=== PATIENT | female | born 1975 | race Caucasian/White ===

== ENCOUNTER 2016-07-09 12:39 | Inpatient (IN) | payer OTHER ==
[2016-07-09] MEDS ORDERED: MENTHOL/PHENOL 1 EACH UD MM PRN (14:57)
[2016-07-09] MEDS ORDERED: LOPERAMIDE HCL 2 MG CAPSULE PO PRN (14:57)
[2016-07-09] MEDS ORDERED: MAGNESIUM CITRATE 300 ML BOTTLE PO PRN (14:57)
[2016-07-09] MEDS ORDERED: P-EPHED 60MG/TRIPROLIDI 2.5MG TABLET PO PRN (14:57)
[2016-07-09] MEDS ORDERED: MAGNESIUM HYDROX 2400MG/30ML ORAL SUSPENSION 30 ML CUP PO PRN (14:57)
[2016-07-09] MEDS ORDERED: MAG HYDROX/AL HYDROX/SIMETH 30 ML UNIT-DOSE CUP PO PRN (14:57)
[2016-07-09] MEDS ORDERED: IBUPROFEN 400 MG TABLET (FP) PO PRN (14:57)
[2016-07-09] MEDS ORDERED: guaiFENesin/D-METHORPHAN HB 10 ML UNIT-DOSE CUPS PO PRN (14:57)
--- NOTE | 2016-07-09 14:57 | HP ---
MIRELA STANTON Rehab Assess/Revision - Admission History Admitted to Rehab from: [facility] [place] Date of Admission to Rehab: 07/09/16 - Vital signs Vital Signs: Vital Signs Period Temp Pulse Resp BP Sys/Daigle Pulse Ox Last 24 Hr 97.1 F 91 16 96/62 - Findings Detox History & Physical reviewed: Yes Concur with findings: Yes
[2016-07-09 15:10] VITALS: BMI 25.3
[2016-07-09] MEDS: FERROUS SO4 325 MG TABLET (FP) PO SCH (17:25)
[2016-07-09] MEDS: hydrOXYzine PAMOATE 50 MG CAPSULE (FP) PO PRN (17:26)
[2016-07-09] MEDS: CYCLOBENZAPRINE HCL 10 MG TABLET (FP) PO PRN (18:05)
[2016-07-09] MEDS: QUEtiapine FUMARATE 50 MG TABLET PO SCH (21:28)
[2016-07-09] MEDS: THIAMINE HCL 100 MG TABLET (FP) PO SCH (21:28)
[2016-07-09] MEDS: traZODone HCL 50 MG TABLET (FP) PO SCH (21:29)
[2016-07-09] MEDS ORDERED: traZODone HCL 150 MG TABLET PO SCH (22:00)
[2016-07-10] MEDS: QUEtiapine FUMARATE 50 MG TABLET PO SCH ×3 (06:43→21:25)
[2016-07-10] MEDS: CYCLOBENZAPRINE HCL 10 MG TABLET (FP) PO PRN (06:44)
[2016-07-10] MEDS: FERROUS SO4 325 MG TABLET (FP) PO SCH ×3 (07:24→17:56)
[2016-07-10] MEDS: LIDOCAINE 5% TOPICAL PATCH TP SCH (10:16)
[2016-07-10] MEDS: NICOTINE 14 MG/24 HOURS TOPICAL PATCH TD SCH (10:16)
[2016-07-10] MEDS: PRENATAL VITAMINS W/ FOLIC ACID TABLET (FP) PO SCH (10:17)
[2016-07-10] MEDS: hydrOXYzine PAMOATE 50 MG CAPSULE (FP) PO PRN ×3 (10:18→20:19)
[2016-07-10] MEDS: CYCLOBENZAPRINE HCL 10 MG TABLET (FP) PO SCH ×2 (13:21→21:25)
[2016-07-10] MEDS: THIAMINE HCL 100 MG TABLET (FP) PO SCH (21:25)
[2016-07-10] MEDS: traZODone HCL 50 MG TABLET (FP) PO SCH (21:25)
[2016-07-11] MEDS: CYCLOBENZAPRINE HCL 10 MG TABLET (FP) PO SCH ×3 (06:27→21:34)
[2016-07-11] MEDS: QUEtiapine FUMARATE 50 MG TABLET PO SCH ×3 (06:27→21:34)
[2016-07-11] MEDS: FERROUS SO4 325 MG TABLET (FP) PO SCH ×3 (07:04→17:56)
[2016-07-11] MEDS: NICOTINE 14 MG/24 HOURS TOPICAL PATCH TD SCH (10:25)
[2016-07-11] MEDS: PRENATAL VITAMINS W/ FOLIC ACID TABLET (FP) PO SCH (10:25)
[2016-07-11] MEDS: LIDOCAINE 5% TOPICAL PATCH TP SCH (10:25)
[2016-07-11] MEDS: hydrOXYzine PAMOATE 50 MG CAPSULE (FP) PO PRN ×2 (10:27→17:56)
[2016-07-11] MEDS: THIAMINE HCL 100 MG TABLET (FP) PO SCH (21:33)
[2016-07-11] MEDS: ACETAMINOPHEN 325 MG TABLET (FP) PO PRN (21:34)
[2016-07-11] MEDS: traZODone HCL 50 MG TABLET (FP) PO SCH (21:34)
[2016-07-12] MEDS: hydrOXYzine PAMOATE 50 MG CAPSULE (FP) PO PRN ×4 (04:31→19:05)
[2016-07-12] MEDS: CYCLOBENZAPRINE HCL 10 MG TABLET (FP) PO SCH ×3 (06:41→21:36)
[2016-07-12] MEDS: QUEtiapine FUMARATE 50 MG TABLET PO SCH ×3 (06:41→21:36)
[2016-07-12] MEDS: FERROUS SO4 325 MG TABLET (FP) PO SCH ×3 (07:04→17:30)
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
[2016-07-12] MEDS: LIDOCAINE 5% TOPICAL PATCH TP SCH (11:10)
[2016-07-12] MEDS: PRENATAL VITAMINS W/ FOLIC ACID TABLET (FP) PO SCH (11:10)
[2016-07-12] MEDS: NICOTINE 14 MG/24 HOURS TOPICAL PATCH TD SCH (11:11)
[2016-07-12] MEDS: traZODone HCL 50 MG TABLET (FP) PO SCH (21:36)
[2016-07-12] MEDS: DOCUSATE SODIUM 100 MG CAPSULE (FP) PO SCH (21:36)
[2016-07-12] MEDS: THIAMINE HCL 100 MG TABLET (FP) PO SCH (21:36)
[2016-07-12] MEDS: diphenhydrAMINE HCL 50 MG CAPSULE PO PRN (21:36)
[2016-07-13] MEDS: CYCLOBENZAPRINE HCL 10 MG TABLET (FP) PO SCH ×3 (06:39→21:23)
[2016-07-13] MEDS: QUEtiapine FUMARATE 50 MG TABLET PO SCH ×3 (06:39→21:22)
[2016-07-13] MEDS: FERROUS SO4 325 MG TABLET (FP) PO SCH ×3 (07:41→17:15)
[2016-07-13] MEDS: hydrOXYzine PAMOATE 50 MG CAPSULE (FP) PO PRN ×3 (10:30→20:15)
[2016-07-13] MEDS: DOCUSATE SODIUM 100 MG CAPSULE (FP) PO SCH ×2 (10:30→21:22)
[2016-07-13] MEDS: NICOTINE 14 MG/24 HOURS TOPICAL PATCH TD SCH (10:30)
[2016-07-13] MEDS: PRENATAL VITAMINS W/ FOLIC ACID TABLET (FP) PO SCH (10:30)
[2016-07-13] MEDS: LIDOCAINE 5% TOPICAL PATCH TP SCH (10:31)
[2016-07-13] MEDS: traZODone HCL 50 MG TABLET (FP) PO SCH (21:22)
[2016-07-13] MEDS: THIAMINE HCL 100 MG TABLET (FP) PO SCH (21:23)
[2016-07-14] MEDS: hydrOXYzine PAMOATE 50 MG CAPSULE (FP) PO PRN ×3 (03:27→15:44)
[2016-07-14] MEDS: CYCLOBENZAPRINE HCL 10 MG TABLET (FP) PO SCH ×3 (06:23→21:54)
[2016-07-14] MEDS: QUEtiapine FUMARATE 50 MG TABLET PO SCH ×3 (06:23→21:54)
[2016-07-14] MEDS: FERROUS SO4 325 MG TABLET (FP) PO SCH ×3 (07:20→17:19)
[2016-07-14 10:04] LABS: MCH 20.6 pg (25.7-33.7); MCHC 28.7 g/dl (32.0-36.0); MEAN CELL VOLUME 71.7 fl (80-96); MEAN PLT VOLUME 7.8 fl (7.5-11.1); PLATELET COUNT 295 K/MM3 (134-434); RDW 25.9 % (11.6-15.6); WHITE BLOOD COUNT 6.4 K/mm3 (4.0-10.0)
[2016-07-14] MEDS: LIDOCAINE 5% TOPICAL PATCH TP SCH (10:56)
[2016-07-14] MEDS: PRENATAL VITAMINS W/ FOLIC ACID TABLET (FP) PO SCH (10:57)
[2016-07-14] MEDS: DOCUSATE SODIUM 100 MG CAPSULE (FP) PO SCH ×2 (10:57→21:54)
[2016-07-14] MEDS: NICOTINE 14 MG/24 HOURS TOPICAL PATCH TD SCH (10:57)
[2016-07-14] MEDS: ACETAMINOPHEN 325 MG TABLET (FP) PO PRN ×2 (10:57→21:55)
[2016-07-14] MEDS: NICOTINE POLACRILEX 2 MG GUM BUC PRN ×3 (10:59→15:45)
[2016-07-14 11:26] LABS: ANISOCYTOSIS 3+; HYPOCHROMIA 4+; MICROCYTOSIS 3+; POIKILOCYTOSIS 1+; POLYCHROMASIA 1+; STOMATOCYTE 2+; TEAR DROP CELLS 1+
--- NOTE | 2016-07-14 14:09 | PN ---
[facility] Progress Note Note: REPEAT CBC IS UNCHANGED FROM A WEEK AGO. Vital Signs - 8 hr 07/14/16 06:56 Temperature 97.4 F L Pulse Rate 73 Respiratory 18 Rate Blood Pressure 112/76 Laboratory Last Values WBC 6.4 K/mm3 (4.0-10.0) 07/14/16 07:00 RBC 3.59 M/mm3 (3.60-5.2) L 07/14/16 07:00 Hgb 7.4 GM/dL (10.7-15.3) L 07/14/16 07:00 Hct 25.7 % (32.4-45.2) L 07/14/16 07:00 MCV 71.7 fl (80-96) L 07/14/16 07:00 MCHC 28.7 g/dl (32.0-36.0) L 07/14/16 07:00 RDW 25.9 % (11.6-15.6) H 07/14/16 07:00 Plt Count 295 K/MM3 (134-434) D 07/14/16 07:00 MPV 7.8 fl (7.5-11.1) 07/14/16 07:00 Polychromasia 1+ 07/14/16 07:00 Hypochromic-Microcytic 4+ 07/14/16 07:00 Poikilocytosis 1+ 07/14/16 07:00 Anisocytosis 3+ 07/14/16 07:00 Microcytosis 3+ 07/14/16 07:00 Macrocytosis 1+ 07/14/16 07:00 Tear Drop Cells 1+ 07/14/16 07:00 Stomatocytes 2+ 07/14/16 07:00 Morphology Comment Slide scanned 07/14/16 07:00 WE'LL CONTINUE FEOSOL
[2016-07-14] MEDS: traZODone HCL 50 MG TABLET (FP) PO SCH (21:54)
[2016-07-14] MEDS: THIAMINE HCL 100 MG TABLET (FP) PO SCH (21:54)
[2016-07-14] MEDS: diphenhydrAMINE HCL 50 MG CAPSULE PO PRN (21:54)
[2016-07-15] MEDS: hydrOXYzine PAMOATE 50 MG CAPSULE (FP) PO PRN ×4 (03:02→20:03)
[2016-07-15] MEDS: ACETAMINOPHEN 325 MG TABLET (FP) PO PRN ×4 (03:03→21:40)
[2016-07-15] MEDS: QUEtiapine FUMARATE 50 MG TABLET PO SCH ×3 (06:01→21:39)
[2016-07-15] MEDS: CYCLOBENZAPRINE HCL 10 MG TABLET (FP) PO SCH ×3 (06:01→21:39)
[2016-07-15] MEDS: FERROUS SO4 325 MG TABLET (FP) PO SCH ×3 (07:14→17:36)
[2016-07-15] MEDS: PRENATAL VITAMINS W/ FOLIC ACID TABLET (FP) PO SCH (10:38)
[2016-07-15] MEDS: DOCUSATE SODIUM 100 MG CAPSULE (FP) PO SCH ×2 (10:38→21:39)
[2016-07-15] MEDS: LIDOCAINE 5% TOPICAL PATCH TP SCH (10:39)
[2016-07-15] MEDS: NICOTINE 14 MG/24 HOURS TOPICAL PATCH TD SCH (10:39)
[2016-07-15] MEDS: NICOTINE POLACRILEX 2 MG GUM BUC PRN ×3 (10:41→17:37)
[2016-07-15] MEDS: traZODone HCL 100 MG TABLET (FP) PO SCH (21:39)
[2016-07-15] MEDS: THIAMINE HCL 100 MG TABLET (FP) PO SCH (21:39)
[2016-07-16] MEDS: hydrOXYzine PAMOATE 50 MG CAPSULE (FP) PO PRN ×4 (03:34→21:44)
[2016-07-16] MEDS: ACETAMINOPHEN 325 MG TABLET (FP) PO PRN ×4 (03:35→21:45)
[2016-07-16] MEDS: CYCLOBENZAPRINE HCL 10 MG TABLET (FP) PO SCH ×3 (06:28→21:44)
[2016-07-16] MEDS: QUEtiapine FUMARATE 50 MG TABLET PO SCH ×3 (06:28→21:45)
[2016-07-16] MEDS: FERROUS SO4 325 MG TABLET (FP) PO SCH ×3 (08:05→19:02)
[2016-07-16] MEDS: LIDOCAINE 5% TOPICAL PATCH TP SCH (10:35)
[2016-07-16] MEDS: DOCUSATE SODIUM 100 MG CAPSULE (FP) PO SCH ×2 (10:36→21:44)
[2016-07-16] MEDS: NICOTINE 14 MG/24 HOURS TOPICAL PATCH TD SCH (10:36)
[2016-07-16] MEDS: PRENATAL VITAMINS W/ FOLIC ACID TABLET (FP) PO SCH (10:36)
[2016-07-16] MEDS: NICOTINE POLACRILEX 2 MG GUM BUC PRN ×2 (10:43→15:17)
[2016-07-16] MEDS: traZODone HCL 100 MG TABLET (FP) PO SCH (21:44)
[2016-07-16] MEDS: THIAMINE HCL 100 MG TABLET (FP) PO SCH (21:45)
[2016-07-17] MEDS: CYCLOBENZAPRINE HCL 10 MG TABLET (FP) PO SCH ×3 (06:14→21:40)
[2016-07-17] MEDS: QUEtiapine FUMARATE 50 MG TABLET PO SCH ×3 (06:14→21:40)
[2016-07-17] MEDS: ACETAMINOPHEN 325 MG TABLET (FP) PO PRN ×4 (06:14→21:40)
[2016-07-17] MEDS: hydrOXYzine PAMOATE 50 MG CAPSULE (FP) PO PRN ×2 (08:56→15:58)
[2016-07-17] MEDS: FERROUS SO4 325 MG TABLET (FP) PO SCH ×3 (08:56→17:25)
[2016-07-17] MEDS: DOCUSATE SODIUM 100 MG CAPSULE (FP) PO SCH ×2 (10:30→21:40)
[2016-07-17] MEDS: PRENATAL VITAMINS W/ FOLIC ACID TABLET (FP) PO SCH (10:30)
[2016-07-17] MEDS: NICOTINE 14 MG/24 HOURS TOPICAL PATCH TD SCH (10:30)
[2016-07-17] MEDS: LIDOCAINE 5% TOPICAL PATCH TP SCH (10:31)
[2016-07-17] MEDS: NICOTINE POLACRILEX 2 MG GUM BUC PRN (10:32)
[2016-07-17] MEDS: THIAMINE HCL 100 MG TABLET (FP) PO SCH (21:40)
[2016-07-17] MEDS: traZODone HCL 100 MG TABLET (FP) PO SCH (21:40)
[2016-07-18] MEDS: CYCLOBENZAPRINE HCL 10 MG TABLET (FP) PO SCH ×3 (06:18→21:28)
[2016-07-18] MEDS: QUEtiapine FUMARATE 50 MG TABLET PO SCH ×3 (06:18→21:27)
[2016-07-18] MEDS: FERROUS SO4 325 MG TABLET (FP) PO SCH ×3 (07:02→18:43)
[2016-07-18] MEDS: DOCUSATE SODIUM 100 MG CAPSULE (FP) PO SCH ×2 (10:16→21:27)
[2016-07-18] MEDS: PRENATAL VITAMINS W/ FOLIC ACID TABLET (FP) PO SCH (10:16)
[2016-07-18] MEDS: NICOTINE 14 MG/24 HOURS TOPICAL PATCH TD SCH (10:16)
[2016-07-18] MEDS: LIDOCAINE 5% TOPICAL PATCH TP SCH (10:16)
[2016-07-18] MEDS: NICOTINE POLACRILEX 2 MG GUM BUC PRN (10:17)
[2016-07-18] MEDS: hydrOXYzine PAMOATE 50 MG CAPSULE (FP) PO PRN ×3 (10:17→18:43)
[2016-07-18] MEDS: ACETAMINOPHEN 325 MG TABLET (FP) PO PRN ×3 (10:17→21:28)
--- NOTE | 2016-07-18 14:33 | PN ---
[facility] Progress Note Note: Pt. has an abscess below the navel. P : bacitracin oin't qid
[2016-07-18] MEDS: BACITRACIN 0.9 GM PACKET TP SCH ×2 (18:30→21:27)
[2016-07-18] MEDS: THIAMINE HCL 100 MG TABLET (FP) PO SCH (21:27)
[2016-07-18] MEDS: traZODone HCL 100 MG TABLET (FP) PO SCH (21:28)
[2016-07-19] MEDS: hydrOXYzine PAMOATE 50 MG CAPSULE (FP) PO PRN ×4 (03:31→20:22)
[2016-07-19] MEDS: ACETAMINOPHEN 325 MG TABLET (FP) PO PRN (03:33)
[2016-07-19] MEDS: QUEtiapine FUMARATE 50 MG TABLET PO SCH ×3 (06:14→21:35)
[2016-07-19] MEDS: CYCLOBENZAPRINE HCL 10 MG TABLET (FP) PO SCH ×3 (06:14→21:35)
[2016-07-19] MEDS: FERROUS SO4 325 MG TABLET (FP) PO SCH ×3 (07:22→17:38)
[2016-07-19] MEDS: LIDOCAINE 5% TOPICAL PATCH TP SCH (10:20)
[2016-07-19] MEDS: DOCUSATE SODIUM 100 MG CAPSULE (FP) PO SCH ×2 (10:21→21:35)
[2016-07-19] MEDS: NICOTINE 14 MG/24 HOURS TOPICAL PATCH TD SCH (10:21)
[2016-07-19] MEDS: BACITRACIN 0.9 GM PACKET TP SCH ×4 (10:21→21:34)
[2016-07-19] MEDS: PRENATAL VITAMINS W/ FOLIC ACID TABLET (FP) PO SCH (10:22)
[2016-07-19] MEDS: NICOTINE POLACRILEX 2 MG GUM BUC PRN (10:23)
[2016-07-19] MEDS: traZODone HCL 100 MG TABLET (FP) PO SCH (21:34)
[2016-07-19] MEDS: THIAMINE HCL 100 MG TABLET (FP) PO SCH (21:34)
[2016-07-20] MEDS: hydrOXYzine PAMOATE 50 MG CAPSULE (FP) PO PRN ×4 (02:22→17:53)
[2016-07-20] MEDS: QUEtiapine FUMARATE 50 MG TABLET PO SCH ×3 (06:31→21:35)
[2016-07-20] MEDS: CYCLOBENZAPRINE HCL 10 MG TABLET (FP) PO SCH ×3 (06:31→21:35)
[2016-07-20] MEDS: NICOTINE POLACRILEX 2 MG GUM BUC PRN ×3 (06:37→18:03)
[2016-07-20] MEDS: FERROUS SO4 325 MG TABLET (FP) PO SCH ×3 (07:22→17:52)
[2016-07-20] MEDS: BACITRACIN 0.9 GM PACKET TP SCH ×4 (10:15→21:34)
[2016-07-20] MEDS: NICOTINE 14 MG/24 HOURS TOPICAL PATCH TD SCH (10:15)
[2016-07-20] MEDS: LIDOCAINE 5% TOPICAL PATCH TP SCH (10:15)
[2016-07-20] MEDS: DOCUSATE SODIUM 100 MG CAPSULE (FP) PO SCH ×2 (10:16→21:35)
[2016-07-20] MEDS: PRENATAL VITAMINS W/ FOLIC ACID TABLET (FP) PO SCH (10:16)
[2016-07-20] MEDS: THIAMINE HCL 100 MG TABLET (FP) PO SCH (21:35)
[2016-07-20] MEDS: traZODone HCL 100 MG TABLET (FP) PO SCH (21:35)
[2016-07-20] MEDS: diphenhydrAMINE HCL 50 MG CAPSULE PO PRN (21:36)
[2016-07-21] MEDS: diphenhydrAMINE HCL 50 MG CAPSULE PO PRN ×2 (00:59→21:28)
[2016-07-21] MEDS: CYCLOBENZAPRINE HCL 10 MG TABLET (FP) PO SCH ×3 (06:41→21:27)
[2016-07-21] MEDS: QUEtiapine FUMARATE 50 MG TABLET PO SCH ×3 (06:41→21:27)
[2016-07-21] MEDS: FERROUS SO4 325 MG TABLET (FP) PO SCH ×3 (07:13→18:41)
[2016-07-21] MEDS: LIDOCAINE 5% TOPICAL PATCH TP SCH (10:19)
[2016-07-21] MEDS: DOCUSATE SODIUM 100 MG CAPSULE (FP) PO SCH ×2 (10:19→21:27)
[2016-07-21] MEDS: NICOTINE 14 MG/24 HOURS TOPICAL PATCH TD SCH (10:19)
[2016-07-21] MEDS: PRENATAL VITAMINS W/ FOLIC ACID TABLET (FP) PO SCH (10:19)
[2016-07-21] MEDS: NICOTINE POLACRILEX 2 MG GUM BUC PRN ×2 (10:20→15:01)
[2016-07-21] MEDS: BACITRACIN 0.9 GM PACKET TP SCH ×4 (10:20→21:28)
[2016-07-21] MEDS: hydrOXYzine PAMOATE 50 MG CAPSULE (FP) PO PRN ×3 (10:20→19:02)
[2016-07-21] MEDS: ACETAMINOPHEN 325 MG TABLET (FP) PO PRN (10:20)
[2016-07-21] MEDS: traZODone HCL 100 MG TABLET (FP) PO SCH (21:27)
[2016-07-21] MEDS: THIAMINE HCL 100 MG TABLET (FP) PO SCH (21:27)
[2016-07-22] MEDS: diphenhydrAMINE HCL 50 MG CAPSULE PO PRN (00:45)
[2016-07-22] MEDS: CYCLOBENZAPRINE HCL 10 MG TABLET (FP) PO SCH (06:43)
[2016-07-22] MEDS: QUEtiapine FUMARATE 50 MG TABLET PO SCH (06:43)
[2016-07-22] MEDS: NICOTINE POLACRILEX 2 MG GUM BUC PRN ×2 (06:45→10:23)
[2016-07-22] MEDS: FERROUS SO4 325 MG TABLET (FP) PO SCH (07:02)
[2016-07-22 07:23] VITALS: BP 128/85; PULSE 86; TEMP 98
[2016-07-22] MEDS: hydrOXYzine PAMOATE 50 MG CAPSULE (FP) PO PRN (08:54)
--- NOTE | 2016-07-22 09:58 | PN ---
[id number] 86 18-18 128/85 Date of Session: 07/22/16 Chief Complaint:: Discharge visit HPI: Patient addressed Alcohol and Cannabis dependence comorbid with Bipolar disorder,PTSD. ROS: Significant for Anemia. Current Medications: Active Medications Generic Name Dose Route Start Last Admin Trade Name Freq PRN Reason Stop Dose Admin Acetaminophen 650 mg 07/09/16 14:57 07/21/16 10:20 Tylenol - PO 650 mg Q4H PRN Administration FEVER OR PAIN Al Hydroxide/Mg Hydroxide 30 ml 07/09/16 14:57 Mylanta Oral Suspension - PO Q6H PRN DYSPEPSIA Bacitracin 0.9 gm 07/18/16 18:00 07/21/16 21:28 Bacitracin - TP Not Given QID SRI Cyclobenzaprine HCl 10 mg 07/10/16 14:00 07/22/16 06:43 Flexeril - PO 10 mg TID SRI Administration Diphenhydramine HCl 50 mg 07/09/16 14:57 07/22/16 00:45 Benadryl - PO 50 mg HSMR1 PRN Administration FOR ITCHING Docusate Sodium 100 mg 07/12/16 22:00 07/21/16 21:27 Colace - PO 100 mg BID SRI Administration Eucalyptus/Menthol/Phenol/Sorbitol 1 each 07/09/16 14:57 Cepastat Lozenge - MM Q4H PRN SORE THROAT Ferrous Sulfate 325 mg 07/09/16 17:30 07/22/16 07:02 Feosol - PO 325 mg TIDCM SRI Administration Guaifenesin 10 ml 07/09/16 14:57 Robitussin Dm - PO Q6H PRN COUGH Hydroxyzine Pamoate 50 mg 07/12/16 09:12 07/22/16 08:54 Vistaril - PO 50 mg Q4H PRN Administration ANXIETY Ibuprofen 400 mg 07/09/16 14:57 Motrin - PO Q6H PRN PAIN Lidocaine 1 patch 07/10/16 10:00 07/21/16 10:19 Lidoderm Patch - TP 1 patch DAILY SRI Administration Loperamide HCl 4 mg 07/09/16 14:57 Imodium - PO Q6H PRN DIARRHEA Magnesium Hydroxide 30 ml 07/09/16 14:57 Milk Of Magnesia - PO DAILY PRN CONSTIPATION Nicotine 14 mg 07/10/16 10:00 07/21/16 10:19 Nicoderm Patch - TD 14 mg DAILY SRI Administration Nicotine Polacrilex 2 mg 07/09/16 14:57 07/22/16 06:45 Nicorette Gum - BUC 2 mg Q2H PRN Administration NICOTINE REPLACEMENT RX Multivit/Folic Acid/Iron 1 tab 07/10/16 10:00 07/21/16 10:19 Vitamins (Sjr) - PO 1 tab DAILY SRI Administration Pseudoephedrine/Triprolidine 1 combo 07/09/16 14:57 Actifed - PO TID PRN NASAL CONGESTION Quetiapine Fumarate 50 mg 07/09/16 22:00 07/22/16 06:43 Seroquel - PO 50 mg TID SRI Administration Thiamine HCl 100 mg 07/09/16 22:00 07/21/16 21:27 Vitamin B1 - PO 100 mg HS SRI Administration Trazodone HCl 200 mg 07/15/16 22:00 07/21/16 21:27 Desyrel - PO 200 mg HS SRI Administration Current Side Effect: No Lab tests ordered: No Lab tests reviewed: Yes Provider note:: Patient completed this program today.She has met her treatment goals and will continue to address her issues on outpatient basis at [facility] in [facility].Patient continues to find that Trazodone 200 mg po hs and Seroquel 100 mg po hs help to reduce her mood instability,anxiety and sleeping difficulties.Scripts for 30 days supply provided. Therapy provided focusing on relapse prevention,coping skills,support system utilization has been discussed with the patient . Patient is stable for discharge today. Total face to face time:: 30 Mental Status Exam - Mental Status Exam Alert and Oriented to: Time, Place, Person Cognitive Function: Grossly Intact Patient Appearance: Well Groomed Mood: Euthymic Affect: Appropriate, Mood Congruent Patient Behavior: Cooperative Speech Pattern: Clear Voice Loudness: Normal Thought Process: Goal Oriented Thought Disorder: Not Present Hallucinations: Denies Suicidal Ideation: Denies Homicidal Ideation: Denies Insight/Judgement: Fair Sleep: Fair Appetite: Good Muscle strength/Tone: Normal Gait/Station: Normal Psychiatric Treatment Plan - Problem List (5) Nicotine dependence Qualifiers: Nicotine product type: cigarettes Substance use status: uncomplicated Qualified Code(s): F17.210 - Nicotine dependence, cigarettes, uncomplicated (6) Anemia Qualifiers: Anemia type: iron deficiency Iron deficiency anemia type: inadequate dietary iron intake Qualified Code(s): D50.8 - Other iron deficiency anemias
[2016-07-22] MEDS: LIDOCAINE 5% TOPICAL PATCH TP SCH (10:20)
[2016-07-22] MEDS: BACITRACIN 0.9 GM PACKET TP SCH (10:20)
[2016-07-22] MEDS: PRENATAL VITAMINS W/ FOLIC ACID TABLET (FP) PO SCH (10:21)
[2016-07-22] MEDS: NICOTINE 14 MG/24 HOURS TOPICAL PATCH TD SCH (10:21)
[2016-07-22] MEDS: DOCUSATE SODIUM 100 MG CAPSULE (FP) PO SCH (10:21)
== END 2016-07-22 11:07 | disposition home or self-care (01) | DRG 772 ==
LOC: YASAS 12:39 → Y3E 12:40
PROVIDERS: ADMIT Psychiatry & Neurology Psychiatry; ATTEND Psychiatry & Neurology Psychiatry
PROC: HZ42ZZZ Group Counseling for Substance Abuse Treatment, Cognitive-Behavioral (ICD-10-PCS; principal; 2016-07-09)
DX: F10.20 Alcohol dependence, uncomplicated (principal); F12.20 Cannabis dependence, uncomplicated; F17.210 Nicotine dependence, cigarettes, uncomplicated; F31.81 Bipolar II disorder; F43.10 Post-traumatic stress disorder, unspecified; D50.8 Other iron deficiency anemias; L02.211 Cutaneous abscess of abdominal wall; Z98.84 Bariatric surgery status
CPT/HCPCS: 36415; 85027

== ENCOUNTER 2018-04-16 14:07 | Inpatient (IN) | payer OTHER ==
[2018-04-16 14:52] VITALS: BMI 23.6
--- NOTE | 2018-04-16 19:29 | HP ---
Admission [facility] Chief Complaint: alcohol and marijuana rehabilitation Allergies/Adverse Reactions: Allergies Allergy/AdvReac Type Severity Reaction Status Date / Time No Known Allergies Allergy Verified 04/16/18 17:04 History of Present Illness: 42 yo female with hx of nicotine, marijuana and alcohol dependence is here for rehabilitation. Patient was admitted to [facility] 04/12/18 - 04/16/18. Uotx positive for FEN, BZO and THC. Patient denies fentanyl use or any other opioid use. PMHX: Chronic Anemia, HTN ( no meds), hx of gastric by pass, bipolar , depression and PTSD. Denies suicidal / homicidal ideation. Reports hx frequent ETOH blackouts and injury with last episode one month ago. Longest period of sobriety 28 days four years ago. Exam Limitations: No Limitations - Ebola screening Have you traveled outside of the country in the last 21 days: No Have you had contact with anyone from an Ebola affected area: No Have you been sick,other than usual withdrawal symptoms: No Do you have a fever: No - Review of Systems Constitutional: Changes in sleep EENT: reports: No Symptoms Reported Respiratory: reports: No Symptoms reported Cardiac: reports: No Symptoms Reported GI: reports: Constipated (last BM 04/11/18) : reports: No Symptoms Reported Musculoskeletal: reports: Back Pain Integumentary: reports: No Symptoms Reported Neuro: reports: Dizziness Endocrine: reports: No Symptoms Reported Hematology: reports: See HPI, Anemia Psychiatric: reports: Orientated x3, Anxious Other Systems: Reviewed and Negative Patient History - Patient Medical History Hx Anemia: Yes (blood transfusion first at age 7 last 05/2016) Hx Asthma: No Hx Chronic Obstructive Pulmonary Disease (COPD): No Hx Cancer: No Hx Cardiac Disorders: No Hx Congestive Heart Failure: No Hx Hypertension: Yes Hx Hypercholesterolemia: No Hx Pacemaker: No HX Cerebrovascular Accident: No Hx Seizures: No Hx Dementia: No Hx Diabetes: No Hx Gastrointestinal Disorders: No Hx Liver Disease: No Hx Genitourinary Disorders: No Hx Sexually Transmitted Disorders: No Hx Renal Disease (ESRD): No Hx Thyroid Disease: No Hx Human Immunodeficiency Virus (HIV): No Hx Hepatitis C: No Hx Depression: No Hx Suicide Attempt: Yes Hx Bipolar Disorder: Yes Hx Schizophrenia: No - Patient Surgical History Past Surgical History: Yes Hx Neurologic Surgery: No Hx Cataract Extraction: No Hx Cardiac Surgery: No Hx Lung Surgery: No Hx Breast Surgery: No Hx Breast Biopsy: No Hx Abdominal Surgery: Yes (gastric by pass age 29) Hx Appendectomy: No Hx Cholecystectomy: No Hx Genitourinary Surgery: No Hx Section: Yes (age 30) Hx Orthopedic Surgery: Yes (right knee 2004) Hx Hysterectomy: No Other Surgical History: left ankle Fx with metal plate in place 2013 & Gastric bypass 2003 Anesthesia Reaction: No - PPD History Previous Implant?: No Documented Results: Negative w/proof Date: 07/07/16 Results: 0mm PPD to be Administered?: Yes - Reproductive History Patient is a Female of Child Bearing Age (11 -55 yrs old): Yes Last Menstrual Period: 04/16/18 Patient : No - Smoking Cessation Smoking history: Current every day smoker Have you smoked in the past 12 months: Yes Aproximately how many cigarettes per day: 6 Cigars Per Day: 0 Hx Chewing Tobacco Use: No Initiated information on smoking cessation: Yes 'Breaking Loose' booklet given: 04/16/18 - Substance & Tx. History Hx Alcohol Use: Yes Hx Substance Use: Yes Substance Use Type: Alcohol, Marijuana Hx Substance Use Treatment: Yes ( [facility] detox 04/12/18 - 04/16/18) - Substances Abused Alcohol Route: Oral Frequency: Daily Amount used: 8 x 24 oz beers + 1 pint vodka Age of first use: 10 Date of Last Use: 04/11/18 Marijuana/Hashish Route: Smoking Frequency: 1-2 times per week Amount used: 1 joint Age of first use: 10 Date of Last Use: 04/10/18 Family Disease History - Family Disease History Family Disease History: Heart Disease: Mother () Admission Physical Exam S - Vital Signs Vital Signs: Vital Signs - 24 hr 04/16/18 14:39 Temperature 97.2 F L Pulse Rate 80 Respiratory 18 Rate Blood Pressure 117/68 - Physical General Appearance: Yes: Appropriately Dressed, Thin, Anxious HEENTM: Yes: EOMI, Hearing grossly Normal, Normal ENT Inspection, Normocephalic , Normal Voice, FLOWER, Pharynx Normal, Tm's normal Respiratory: Yes: Chest Non-Tender, Lungs Clear, Normal Breath Sounds, No Respiratory Distress, No Accessory Muscle Use Neck: Yes: Within Normal Limits Breast: Yes: Breast Exam Deferred Cardiology: Yes: Regular Rhythm, Regular Rate Abdominal: Yes: Normal Bowel Sounds, Non Tender, Flat, Soft Genitourinary: Yes: Within Normal Limits Back: Yes: Normal Inspection Musculoskeletal: Yes: full range of Motion, Gait Steady, Pelvis Stable, Back pain Extremities: Yes: Normal Capillary Refill, Normal Inspection, Normal Range of Motion, Non-Tender 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 intact, Fully Oriented, Alert, Motor Strength 5/5, Normal Response Integumentary: Yes: Normal Color, Dry, Warm Lymphatic: Yes: Within Normal Limits - Diagnostic (1) Constipation Current Visit: Yes Status: Chronic Qualifiers: Constipation type: unspecified constipation type Qualified Code(s): K59.00 - Constipation, unspecified (2) Cannabis dependence Current Visit: Yes Status: Acute (3) Nicotine dependence Current Visit: Yes Status: Acute Qualifiers: Nicotine product type: cigarettes Substance use status: uncomplicated Qualified Code(s): F17.210 - Nicotine dependence, cigarettes, uncomplicated (4) Anemia Current Visit: Yes Status: Chronic Qualifiers: Anemia type: iron deficiency Iron deficiency anemia type: inadequate dietary iron intake Qualified Code(s): D50.8 - Other iron deficiency anemias (5) Alcohol dependence Current Visit: Yes Status: Acute Qualifiers: Substance use status: uncomplicated Qualified Code(s): F10.20 - Alcohol dependence, uncomplicated [facility] Breath Alcohol Content Breath Alcohol Content: 0 Urine Pregancy Test - Result Urine Test Results: Negative- NO Line Present Urine Drug Screen - Results Drug Screen Negative: No Urine Drug Screen Results: THC-Marijuana, BZO-Benzodiazepines, FEN-Fentanyl Inpatient Rehab Admission - Initial Determination Are CD services needed?: Yes Free of communicable disease: Yes Not in need of hospitalization: Yes - Rehab Admission Criteria Previous failed treatment: Yes Poor recovery environment: Yes Comorbidities: Yes Lacks judgement: Yes Patient is meeting Inpatient Rehab admission criteria:: Yes
[2018-04-16] MEDS ORDERED: MAGNESIUM HYDROX 2400MG/30ML ORAL SUSPENSION 30 ML CUP PO PRN (19:36)
[2018-04-16] MEDS ORDERED: ACETAMINOPHEN 325 MG TABLET (FP) PO PRN (19:36)
[2018-04-16] MEDS ORDERED: LOPERAMIDE HCL 2 MG CAPSULE PO PRN (19:36)
[2018-04-16] MEDS ORDERED: MENTHOL/PHENOL 1 EACH UD MM PRN (19:36)
[2018-04-16] MEDS ORDERED: IBUPROFEN 400 MG TABLET (FP) PO PRN (19:36)
[2018-04-16] MEDS ORDERED: guaiFENesin/D-METHORPHAN HB 10 ML UNIT-DOSE CUPS PO PRN (19:36)
[2018-04-16] MEDS ORDERED: P-EPHED 60MG/TRIPROLIDI 2.5MG TABLET PO PRN (19:36)
[2018-04-16] MEDS ORDERED: NICOTINE POLACRILEX 2 MG GUM BC PRN (19:36)
[2018-04-16] MEDS ORDERED: MAGNESIUM CITRATE 300 ML BOTTLE PO PRN (19:36)
[2018-04-16] MEDS ORDERED: MAG HYDROX/AL HYDROX/SIMETH 30 ML UNIT-DOSE CUP PO PRN (19:36)
[2018-04-16] MEDS ORDERED: PATIENT'S OWN MEDICATION (NON-FORMULARY) (Clonidine Hcl [Clonidine Hcl] 0.2 MG) PO SCH (22:00)
[2018-04-16] MEDS ORDERED: TUBERCULIN PPD 5 TU/0.1ML VIAL ID ONE ×2 (22:38→23:59)
[2018-04-16] MEDS: cloNIDine HCL 0.1 MG TABLET PO SCH (22:43)
[2018-04-16] MEDS: CYCLOBENZAPRINE HCL 10 MG TABLET (FP) PO SCH (22:43)
[2018-04-16] MEDS: DOCUSATE SODIUM 100 MG CAPSULE (FP) PO SCH (22:43)
[2018-04-16] MEDS: THIAMINE HCL 100 MG TABLET (FP) PO SCH (22:43)
[2018-04-16 23:51] LABS: URINE APPEARANCE CLOUDY; URINE BILIRUBIN NEGATIVE (<2.0 mg/dL); URINE COLOR DKYELLOW; URINE GLUCOSE (UA) NEGATIVE (NEGATIVE); URINE KETONE NEGATIVE (NEGATIVE); URINE LEUK ESTERASE 2+ (NEGATIVE); URINE NITRITE POSITIVE (NEGATIVE); URINE PROTEIN NEGATIVE (NEGATIVE); URINE UROBILINOGEN NEGATIVE mg/dL (0.2-1.0)
[2018-04-17 00:42] LABS: EPI CELLS RARE /HPF (FEW); URINE BACTERIA MODERATE /hpf (NONE SEEN)
[2018-04-17] MEDS: DOCUSATE SODIUM 100 MG CAPSULE (FP) PO SCH ×3 (06:08→21:27)
[2018-04-17] MEDS: CYCLOBENZAPRINE HCL 10 MG TABLET (FP) PO SCH ×3 (06:08→21:26)
[2018-04-17] MEDS: hydrOXYzine PAMOATE 50 MG CAPSULE (FP) PO PRN ×3 (06:10→21:29)
[2018-04-17] MEDS: FERROUS SO4 325 MG TABLET (FP) PO SCH ×3 (07:13→17:15)
[2018-04-17] MEDS: cloNIDine HCL 0.1 MG TABLET PO SCH ×2 (09:48→23:03)
[2018-04-17] MEDS: PRENATAL VITAMINS W/ FOLIC ACID TABLET (FP) PO SCH (09:48)
[2018-04-17] MEDS: NICOTINE 14 MG/24 HOURS TOPICAL PATCH TD SCH (09:49)
[2018-04-17 11:28] LABS: ALBUMIN 3.8 g/dl (3.4-5.0); ALK PHOS 71 U/L (45-117); ANION GAP 5 MMOL/L (8-16); BILIRUBIN,TOTAL 0.2 mg/dL (0.2-1); BLOOD UREA NITROGEN 13 mg/dL (7-18); CALCIUM 9.3 mg/dL (8.5-10.1); CHLORIDE 104 mmol/L (98-107); CO2 28 mmol/L (21-32); CREATININE 0.4 mg/dL (0.55-1.3); GLUCOSE,RANDOM 73 mg/dL (74-106); POTASSIUM 4.8 mmol/L (3.5-5.1); SGOT/AST 21 U/L (15-37); SGPT/ALT 25 U/L (13-61); SODIUM 136 mmol/L (136-145)
[2018-04-17 11:45] LABS: HEMOGLOBIN 7.9 GM/dL (10.7-15.3); MCH 21.5 pg (25.7-33.7); MCHC 28.4 g/dl (32.0-36.0); MEAN PLT VOLUME 7.9 fl (7.5-11.1); PLATELET COUNT 249 K/MM3 (134-434); RBC 3.68 M/mm3 (3.60-5.2); RDW 20.9 % (11.6-15.6); WHITE BLOOD COUNT 6.4 K/mm3 (4.0-10.0)
[2018-04-17 11:46] LABS: HEMATOCRIT 27.9 % (32.4-45.2); MEAN CELL VOLUME 75.7 fl (80-96)
[2018-04-17] MEDS ORDERED: FLU VACCINE QUAD 60 MCG/0.5 ML (MDV 18-19) IM ONE (12:00)
--- NOTE | 2018-04-17 12:46 | PN ---
[facility] Progress Note Note: Vital Signs Temperature 97.4 F L 04/17/18 09:26 Pulse Rate 87 04/17/18 09:26 Respiratory Rate 18 04/17/18 09:26 Blood Pressure 102/65 04/17/18 09:26 O2 Sat by Pulse Oximetry (%) Laboratory Last Values WBC 6.4 K/mm3 (4.0-10.0) 04/17/18 07:00 RBC 3.68 M/mm3 (3.60-5.2) 04/17/18 07:00 Hgb 7.9 GM/dL (10.7-15.3) L 04/17/18 07:00 Hct 27.9 % (32.4-45.2) L 04/17/18 07:00 MCV 75.7 fl (80-96) L 04/17/18 07:00 MCH 21.5 pg (25.7-33.7) L 04/17/18 07:00 MCHC 28.4 g/dl (32.0-36.0) L 04/17/18 07:00 RDW 20.9 % (11.6-15.6) H 04/17/18 07:00 Plt Count 249 K/MM3 (134-434) 04/17/18 07:00 MPV 7.9 fl (7.5-11.1) 04/17/18 07:00 Sodium 136 mmol/L (136-145) 04/17/18 07:00 Potassium 4.8 mmol/L (3.5-5.1) 04/17/18 07:00 Chloride 104 mmol/L (98-107) 04/17/18 07:00 Carbon Dioxide 28 mmol/L (21-32) 04/17/18 07:00 Anion Gap 5 MMOL/L (8-16) L 04/17/18 07:00 BUN 13 mg/dL (7-18) 04/17/18 07:00 Creatinine 0.4 mg/dL (0.55-1.3) L 04/17/18 07:00 Creat Clearance w eGFR > 60 (>60) 04/17/18 07:00 Random Glucose 73 mg/dL (74-106) L 04/17/18 07:00 Calcium 9.3 mg/dL (8.5-10.1) 04/17/18 07:00 Total Bilirubin 0.2 mg/dL (0.2-1) 04/17/18 07:00 AST 21 U/L (15-37) 04/17/18 07:00 ALT 25 U/L (13-61) 04/17/18 07:00 Alkaline Phosphatase 71 U/L (45-117) 04/17/18 07:00 Total Protein 8.0 g/dl (6.4-8.2) 04/17/18 07:00 Albumin 3.8 g/dl (3.4-5.0) 04/17/18 07:00 Urine Color Dky[place] 04/16/18 22:43 Urine Appearance Cloudy 04/16/18 22:43 Urine pH 5.0 (5.0-8.0) D 04/16/18 22:43 Ur Specific [place] 1.017 (1.010-1.035) 04/16/18 22:43 Urine Protein Negative (NEGATIVE) 04/16/18 22:43 Urine Glucose (UA) Negative (NEGATIVE) 04/16/18 22:43 Urine Ketones Negative (NEGATIVE) 04/16/18 22:43 Urine Blood 2+ (NEGATIVE) H 04/16/18 22:43 Urine Nitrite Positive (NEGATIVE) 04/16/18 22:43 Urine Bilirubin Negative (<2.0 mg/dL) 04/16/18 22:43 Urine Urobilinogen Negative mg/dL (0.2-1.0) 04/16/18 22:43 Ur Leukocyte Esterase 2+ (NEGATIVE) H 04/16/18 22:43 Urine WBC (Auto) 38 /hpf (3-5) 04/16/18 22:43 Urine RBC (Auto) 43 /hpf (0-3) 04/16/18 22:43 Ur Epithelial Cells Rare /HPF (FEW) 04/16/18 22:43 Urine Bacteria Moderate /hpf (NONE SEEN) 04/16/18 22:43 RPR Titer Nonreactive (NONREACTIVE) 04/17/18 07:00 HIV 1&2 Antibody Screen Negative 04/17/18 07:00 HIV P24 Antigen Negative 04/17/18 07:00 Patient with hx of Chronic Anemia Repeat CBC in AM repeat UA continue to monitor
--- NOTE | 2018-04-17 20:12 | PN ---
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
[2018-04-17 21:23] LABS: URINE APPEARANCE CLEAR; URINE BILIRUBIN NEGATIVE (<2.0 mg/dL); URINE COLOR STRAW; URINE GLUCOSE (UA) NEGATIVE (NEGATIVE); URINE KETONE NEGATIVE (NEGATIVE); URINE LEUK ESTERASE 3+ (NEGATIVE); URINE NITRITE NEGATIVE (NEGATIVE); URINE PROTEIN NEGATIVE (NEGATIVE); URINE UROBILINOGEN NEGATIVE mg/dL (0.2-1.0)
[2018-04-17 21:26] LABS: URINE BACTERIA RARE /hpf (NONE SEEN)
[2018-04-17] MEDS: THIAMINE HCL 100 MG TABLET (FP) PO SCH (21:27)
[2018-04-17] MEDS ORDERED: TRAZODONE HCL 150 MG PO SCH (22:00)
[2018-04-17] MEDS: MELATONIN 5 MG TABLETS PO PRN (23:02)
[2018-04-18] MEDS: CYCLOBENZAPRINE HCL 10 MG TABLET (FP) PO SCH ×3 (06:28→21:39)
[2018-04-18] MEDS: DOCUSATE SODIUM 100 MG CAPSULE (FP) PO SCH ×3 (06:28→21:39)
[2018-04-18] MEDS: FERROUS SO4 325 MG TABLET (FP) PO SCH ×3 (07:42→17:25)
[2018-04-18] MEDS ORDERED: PT OWN MED DRAWER 7, Y5N ONE (08:54)
[2018-04-18] MEDS: cloNIDine HCL 0.1 MG TABLET PO SCH ×2 (09:58→21:41)
[2018-04-18] MEDS: PRENATAL VITAMINS W/ FOLIC ACID TABLET (FP) PO SCH (09:59)
[2018-04-18] MEDS: NICOTINE 14 MG/24 HOURS TOPICAL PATCH TD SCH (09:59)
[2018-04-18] MEDS ORDERED: QUEtiapine FUMARATE 50 MG TABLET PO SCH (10:00)
[2018-04-18] MEDS: hydrOXYzine PAMOATE 50 MG CAPSULE (FP) PO PRN (11:58)
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
[2018-04-18] MEDS ORDERED: QUEtiapine FUMARATE 50 MG TABLET PO ONE (14:45)
[2018-04-18 14:48] LABS: BASO % 0.4 % (0-2.0); EOS % 1.1 % (0-4.5); HEMATOCRIT 24.7 % (32.4-45.2); HEMOGLOBIN 7.2 GM/dL (10.7-15.3); LYMPH % 14.9 % (8-40); MCH 21.8 pg (25.7-33.7); MCHC 28.9 g/dl (32.0-36.0); MEAN CELL VOLUME 75.3 fl (80-96); MEAN PLT VOLUME 8.4 fl (7.5-11.1); MONO % 13.2 % (3.8-10.2); NEUT % 70.4 % (42.8-82.8); PLATELET COUNT 238 K/MM3 (134-434); RBC 3.28 M/mm3 (3.60-5.2); RDW 21.8 % (11.6-15.6); WHITE BLOOD COUNT 7.6 K/mm3 (4.0-10.0)
--- NOTE | 2018-04-18 14:48 | EKG ---
Test Reason : Blood Pressure : / mmHG Vent. Rate : 069 BPM Atrial Rate : 069 BPM P-R Int : 152 ms QRS Dur : 088 ms QT Int : 422 ms P-R-T Axes : 062 049 031 degrees QTc Int : 452 ms NORMAL SINUS RHYTHM POSSIBLE LEFT ATRIAL ENLARGEMENT BORDERLINE ECG NO PREVIOUS ECGS AVAILABLE Confirmed by KIMANI STANTON, RAJIV ([id number]) on 04/18/2018 2:48:21 PM Referred By: Confirmed By:RAJIV HARMAN MD
[2018-04-18 20:16] LABS: ANISOCYTOSIS 2+; MACROCYTOSIS 2+; PLATELET ESTIMATE ADEQUATE
[2018-04-18] MEDS: traZODone HCL 50 MG TABLET (FP) PO SCH (21:40)
[2018-04-18] MEDS: THIAMINE HCL 100 MG TABLET (FP) PO SCH (22:40)
[2018-04-18] MEDS: MELATONIN 5 MG TABLETS PO PRN (23:51)
[2018-04-19] MEDS: DOCUSATE SODIUM 100 MG CAPSULE (FP) PO SCH ×3 (06:35→21:24)
[2018-04-19] MEDS: CYCLOBENZAPRINE HCL 10 MG TABLET (FP) PO SCH ×3 (06:35→21:25)
[2018-04-19] MEDS: FERROUS SO4 325 MG TABLET (FP) PO SCH ×3 (07:46→18:24)
[2018-04-19] MEDS: QUEtiapine FUMARATE 50 MG TABLET PO SCH ×2 (10:07→14:00)
[2018-04-19] MEDS: cloNIDine HCL 0.1 MG TABLET PO SCH ×2 (10:07→21:24)
[2018-04-19] MEDS: PRENATAL VITAMINS W/ FOLIC ACID TABLET (FP) PO SCH (10:07)
[2018-04-19] MEDS: NICOTINE 14 MG/24 HOURS TOPICAL PATCH TD SCH (10:07)
[2018-04-19] MEDS ORDERED: PT OWN MED DRAWER 7, Y5N ONE (11:52)
--- NOTE | 2018-04-19 13:45 | PN ---
[facility] Progress Note Note: Vital Signs Temperature 97.6 F 04/19/18 06:00 Pulse Rate 102 H 04/19/18 09:19 Respiratory Rate 16 04/19/18 06:00 Blood Pressure 108/77 04/19/18 09:19 O2 Sat by Pulse Oximetry (%) Laboratory Last Values WBC 7.6 K/mm3 (4.0-10.0) 04/18/18 09:55 RBC 3.28 M/mm3 (3.60-5.2) L 04/18/18 09:55 Hgb 7.2 GM/dL (10.7-15.3) L 04/18/18 09:55 Hct 24.7 % (32.4-45.2) L 04/18/18 09:55 MCV 75.3 fl (80-96) L 04/18/18 09:55 MCH 21.8 pg (25.7-33.7) L 04/18/18 09:55 MCHC 28.9 g/dl (32.0-36.0) L 04/18/18 09:55 RDW 21.8 % (11.6-15.6) H 04/18/18 09:55 Plt Count 238 K/MM3 (134-434) 04/18/18 09:55 MPV 8.4 fl (7.5-11.1) 04/18/18 09:55 Absolute Neuts (auto) 5.4 K/mm3 (1.5-8.0) 04/18/18 09:55 Neutrophils % 70.4 % (42.8-82.8) 04/18/18 09:55 Lymphocytes % 14.9 % (8-40) D 04/18/18 09:55 Monocytes % 13.2 % (3.8-10.2) H 04/18/18 09:55 Eosinophils % 1.1 % (0-4.5) 04/18/18 09:55 Basophils % 0.4 % (0-2.0) 04/18/18 09:55 Nucleated RBC % 0 % (0-0) 04/18/18 09:55 Hypochromia 2+ 04/18/18 09:55 Platelet Estimate Adequate 04/18/18 09:55 Polychromasia 1+ 04/18/18 09:55 Basophilic Stippling Few 04/18/18 09:55 Anisocytosis 2+ 04/18/18 09:55 Microcytosis 1+ 04/18/18 09:55 Macrocytosis 2+ 04/18/18 09:55 Sodium 136 mmol/L (136-145) 04/17/18 07:00 Potassium 4.8 mmol/L (3.5-5.1) 04/17/18 07:00 Chloride 104 mmol/L (98-107) 04/17/18 07:00 Carbon Dioxide 28 mmol/L (21-32) 04/17/18 07:00 Anion Gap 5 MMOL/L (8-16) L 04/17/18 07:00 BUN 13 mg/dL (7-18) 04/17/18 07:00 Creatinine 0.4 mg/dL (0.55-1.3) L 04/17/18 07:00 Creat Clearance w eGFR > 60 (>60) 04/17/18 07:00 Random Glucose 73 mg/dL (74-106) L 04/17/18 07:00 Calcium 9.3 mg/dL (8.5-10.1) 04/17/18 07:00 Total Bilirubin 0.2 mg/dL (0.2-1) 04/17/18 07:00 AST 21 U/L (15-37) 04/17/18 07:00 ALT 25 U/L (13-61) 04/17/18 07:00 Alkaline Phosphatase 71 U/L (45-117) 04/17/18 07:00 Total Protein 8.0 g/dl (6.4-8.2) 04/17/18 07:00 Albumin 3.8 g/dl (3.4-5.0) 04/17/18 07:00 Urine Color Straw 04/17/18 18:40 Urine Appearance Clear 04/17/18 18:40 Urine pH 6.0 (5.0-8.0) 04/17/18 18:40 Ur Specific [place] 1.006 (1.010-1.035) L 04/17/18 18:40 Urine Protein Negative (NEGATIVE) 04/17/18 18:40 Urine Glucose (UA) Negative (NEGATIVE) 04/17/18 18:40 Urine Ketones Negative (NEGATIVE) 04/17/18 18:40 Urine Blood Negative (NEGATIVE) 04/17/18 18:40 Urine Nitrite Negative (NEGATIVE) 04/17/18 18:40 Urine Bilirubin Negative (<2.0 mg/dL) 04/17/18 18:40 Urine Urobilinogen Negative mg/dL (0.2-1.0) 04/17/18 18:40 Ur Leukocyte Esterase 3+ (NEGATIVE) H 04/17/18 18:40 Urine WBC (Auto) 31 /hpf (3-5) 04/17/18 18:40 Urine RBC (Auto) None /hpf (0-3) 04/17/18 18:40 Ur Epithelial Cells Rare /HPF (FEW) 04/16/18 22:43 Urine Bacteria Rare /hpf (NONE SEEN) 04/17/18 18:40 RPR Titer Nonreactive (NONREACTIVE) 04/17/18 07:00 HIV 1&2 Antibody Screen Negative 04/17/18 07:00 HIV P24 Antigen Negative 04/17/18 07:00 stable repeat cbc continue to monitor
[2018-04-19] MEDS: traZODone HCL 50 MG TABLET (FP) PO SCH (21:24)
[2018-04-19] MEDS: THIAMINE HCL 100 MG TABLET (FP) PO SCH (21:25)
[2018-04-19] MEDS: hydrOXYzine PAMOATE 50 MG CAPSULE (FP) PO PRN (22:43)
[2018-04-19] MEDS: MELATONIN 5 MG TABLETS PO PRN (22:43)
[2018-04-20] MEDS: CYCLOBENZAPRINE HCL 10 MG TABLET (FP) PO SCH ×3 (06:47→23:35)
[2018-04-20] MEDS: DOCUSATE SODIUM 100 MG CAPSULE (FP) PO SCH ×3 (06:48→23:35)
[2018-04-20] MEDS: hydrOXYzine PAMOATE 50 MG CAPSULE (FP) PO PRN ×3 (06:49→15:27)
[2018-04-20] MEDS: FERROUS SO4 325 MG TABLET (FP) PO SCH ×3 (07:41→18:47)
[2018-04-20] MEDS: NICOTINE 14 MG/24 HOURS TOPICAL PATCH TD SCH (10:10)
[2018-04-20] MEDS: PRENATAL VITAMINS W/ FOLIC ACID TABLET (FP) PO SCH (10:10)
[2018-04-20] MEDS: QUEtiapine FUMARATE 50 MG TABLET PO SCH ×2 (10:11→14:03)
[2018-04-20] MEDS: cloNIDine HCL 0.1 MG TABLET PO SCH ×2 (10:11→23:35)
[2018-04-20 14:47] LABS: BASO % 0.7 % (0-2.0); EOS % 1.6 % (0-4.5); HEMATOCRIT 24.2 % (32.4-45.2); HEMOGLOBIN 7.1 GM/dL (10.7-15.3); LYMPH % 24.4 % (8-40); MCH 22.4 pg (25.7-33.7); MCHC 29.2 g/dl (32.0-36.0); MEAN CELL VOLUME 76.8 fl (80-96); MEAN PLT VOLUME 8.4 fl (7.5-11.1); MONO % 14.3 % (3.8-10.2); PLATELET COUNT 215 K/MM3 (134-434); RBC 3.15 M/mm3 (3.60-5.2); RDW 25.5 % (11.6-15.6); WHITE BLOOD COUNT 6.4 K/mm3 (4.0-10.0)
--- NOTE | 2018-04-20 15:45 | PN ---
[facility] Progress Note Note: PT IS A 42 Y/O FEMALE ADMITTED HERE FOR REHAB. PT HAS A HX OF CHRONIC ANEMIA STATES PAST BLOOD TRANSFUSIONS, TWICE IN 2017 AND ONCE IN 2018 TILL DATE. AT PRESENT, PT REPORTS TIREDNESS AND SOMETIMES DIZZINESS AND HEADACHE BUT DENIES CURRENT SOB,BLEEDING OR CHEST PAIN. ALERT O X 3. SAYS SHE WILL FEEL MORE COMFORTABLE IF HER DECREASING HGB IS CHECKED OUT FOR POSSIBLE TREATMENT BEYOND THE FEOSOL. Laboratory Tests 04/16/18 04/17/18 04/17/18 22:43 07:00 07:00 WBC 6.4 RBC 3.68 Hgb 7.9 L Hct 27.9 L MCV 75.7 L MCH 21.5 L MCHC 28.4 L RDW 20.9 H Plt Count 249 MPV 7.9 Absolute Neuts (auto) Neutrophils % Lymphocytes % Monocytes % Eosinophils % Basophils % Nucleated RBC % Hypochromia Platelet Estimate Polychromasia Basophilic Stippling Anisocytosis Microcytosis Macrocytosis Sodium 136 Potassium 4.8 Chloride 104 Carbon Dioxide 28 Anion Gap 5 L BUN 13 Creatinine 0.4 L Creat Clearance w eGFR > 60 Random Glucose 73 L Calcium 9.3 Total Bilirubin 0.2 AST 21 ALT 25 Alkaline Phosphatase 71 Total Protein 8.0 Albumin 3.8 Urine Color Dkyellow Urine Appearance Cloudy Urine pH 5.0 D Ur Specific [place] 1.017 Urine Protein Negative Urine Glucose (UA) Negative Urine Ketones Negative Urine Blood 2+ H Urine Nitrite Positive Urine Bilirubin Negative Urine Urobilinogen Negative Ur Leukocyte Esterase 2+ H Urine WBC (Auto) 38 Urine RBC (Auto) 43 Ur Epithelial Cells Rare Urine Bacteria Moderate RPR Titer HIV 1&2 Antibody Screen HIV P24 Antigen 04/17/18 04/17/18 04/17/18 07:00 07:00 18:40 WBC RBC Hgb Hct MCV MCH MCHC RDW Plt Count MPV Absolute Neuts (auto) Neutrophils % Lymphocytes % Monocytes % Eosinophils % Basophils % Nucleated RBC % Hypochromia Platelet Estimate Polychromasia Basophilic Stippling Anisocytosis Microcytosis Macrocytosis Sodium Potassium Chloride Carbon Dioxide Anion Gap BUN Creatinine Creat Clearance w eGFR Random Glucose Calcium Total Bilirubin AST ALT Alkaline Phosphatase Total Protein Albumin Urine Color Straw Urine Appearance Clear Urine pH 6.0 Ur Specific [place] 1.006 L Urine Protein Negative Urine Glucose (UA) Negative Urine Ketones Negative Urine Blood Negative Urine Nitrite Negative Urine Bilirubin Negative Urine Urobilinogen Negative Ur Leukocyte Esterase 3+ H Urine WBC (Auto) 31 Urine RBC (Auto) None Ur Epithelial Cells Urine Bacteria Rare RPR Titer Nonreactive HIV 1&2 Antibody Screen Negative HIV P24 Antigen Negative 04/18/18 04/20/18 09:55 08:55 WBC 7.6 6.4 RBC 3.28 L 3.15 L Hgb 7.2 L 7.1 L Hct 24.7 L 24.2 L MCV 75.3 L 76.8 L MCH 21.8 L 22.4 L MCHC 28.9 L 29.2 L RDW 21.8 H 25.5 H Plt Count 238 215 MPV 8.4 8.4 Absolute Neuts (auto) 5.4 3.8 Neutrophils % 70.4 59.0 Lymphocytes % 14.9 D 24.4 D Monocytes % 13.2 H 14.3 H Eosinophils % 1.1 1.6 Basophils % 0.4 0.7 Nucleated RBC % 0 0 Hypochromia 2+ Platelet Estimate Adequate Polychromasia 1+ Basophilic Stippling Few Anisocytosis 2+ Microcytosis 1+ Macrocytosis 2+ Sodium Potassium Chloride Carbon Dioxide Anion Gap BUN Creatinine Creat Clearance w eGFR Random Glucose Calcium Total Bilirubin AST ALT Alkaline Phosphatase Total Protein Albumin Urine Color Urine Appearance Urine pH Ur Specific [place] Urine Protein Urine Glucose (UA) Urine Ketones Urine Blood Urine Nitrite Urine Bilirubin Urine Urobilinogen Ur Leukocyte Esterase Urine WBC (Auto) Urine RBC (Auto) Ur Epithelial Cells Urine Bacteria RPR Titer HIV 1&2 Antibody Screen HIV P24 Antigen IMPRESSION:CHRONIC ANEMIA PLAN:TRANSFER TO [facility]IA AMBULANCE FOR FURTHER EVALUATION AND POSSIBLE TREATMENT. SPOKE TO DR REYES AT THE ER. PT MAY COME BACK TO [facility] TO CONTINUE REHAB AFTER MEDICALLY CLEARED.
[2018-04-20] MEDS: traZODone HCL 50 MG TABLET (FP) PO SCH (23:35)
[2018-04-20] MEDS: THIAMINE HCL 100 MG TABLET (FP) PO SCH (23:36)
[2018-04-21] MEDS: hydrOXYzine PAMOATE 50 MG CAPSULE (FP) PO PRN ×3 (02:19→12:04)
[2018-04-21] MEDS: MELATONIN 5 MG TABLETS PO PRN (02:19)
[2018-04-21] MEDS: CYCLOBENZAPRINE HCL 10 MG TABLET (FP) PO SCH ×2 (06:58→13:34)
[2018-04-21] MEDS: DOCUSATE SODIUM 100 MG CAPSULE (FP) PO SCH ×2 (06:58→13:34)
[2018-04-21] MEDS: FERROUS SO4 325 MG TABLET (FP) PO SCH ×3 (07:01→17:51)
[2018-04-21 09:17] VITALS: BP 120/83; PULSE 85; TEMP 97.2
[2018-04-21] MEDS: cloNIDine HCL 0.1 MG TABLET PO SCH (09:38)
[2018-04-21] MEDS: NICOTINE 14 MG/24 HOURS TOPICAL PATCH TD SCH (09:38)
[2018-04-21] MEDS: PRENATAL VITAMINS W/ FOLIC ACID TABLET (FP) PO SCH (09:38)
[2018-04-21] MEDS: QUEtiapine FUMARATE 50 MG TABLET PO SCH ×2 (09:39→13:34)
== END 2018-04-21 17:49 | disposition left against medical advice (07) | DRG 770 ==
LOC: YASAS 14:07 → Y3E 17:21
PROVIDERS: ADMIT Psychiatry & Neurology Psychiatry; ATTEND Psychiatry & Neurology Psychiatry
PROC: HZ42ZZZ Group Counseling for Substance Abuse Treatment, Cognitive-Behavioral (ICD-10-PCS; principal; 2018-04-16)
DX: F10.20 Alcohol dependence, uncomplicated (principal); F17.210 Nicotine dependence, cigarettes, uncomplicated; F31.81 Bipolar II disorder; D50.8 Other iron deficiency anemias; K59.00 Constipation, unspecified; Z98.84 Bariatric surgery status; Z87.81 Personal history of (healed) traumatic fracture; Z91.5 Personal history of self-harm
CPT/HCPCS: 36415; 80053; 81003; 81015; 85025; 85027; 86593; 87389; 93005; 93010; J0735

== ENCOUNTER 2018-04-20 16:57 | Emergency (ER) | payer OTHER ==
[2018-04-20 17:20] VITALS: BMI 24.0
--- NOTE | 2018-04-20 17:27 | PDOC ---
History of Present Illness - General Chief Complaint: Revisit, Lab Variance Stated Complaint: ANEMIA Time Seen by Provider: 04/20/18 17:23 History Source: Patient Exam Limitations: No Limitations - History of Present Illness Initial Comments: CHIEF COMPLAINT: 42 y/o afebrile female with PMH ETOH abuse and anemia sent over by [facility] for low blood counts. HISTORY OF PRESENT ILLNESS: The patient states she was admitted to [facility] 5 days ago. They have been monitoring her blood but she hasn't seen the doctor at the facility today. He reviewed her blood work and send her here by EMS. She states she has a headache and feels fatigue. She denies f/c, n/v/d, dizziness, CP, SOB, palpitations, vaginal bleeding, rectal bleeding, hematuria. She has been worked up for anemia in the past and there has never been a bleeding source. She is supposed to be taking iron but hasn't been compliant. Past History - Past Medical History Allergies/Adverse Reactions: Allergies Allergy/AdvReac Type Severity Reaction Status Date / Time No Known Allergies Allergy Verified 04/16/18 17:04 Home Medications: Ambulatory Orders Quetiapine Fumarate [Seroquel -] 50 mg PO TID #90 tablet 07/07/16 Trazodone HCl [Oleptro ER] 150 mg PO HS #30 tab.sr.24h 07/07/16 Clonidine HCl 0.2 mg PO DAILY 07/09/16 Cyclobenzaprine HCl [Flexeril -] 10 mg PO TID 07/09/16 Docusate Sodium [Colace -] 100 mg PO BID #60 capsule 07/21/16 Ferrous Sulfate [Feosol] 325 mg PO TIDCM #90 ud 07/21/16 Anemia: Yes (blood transfusion first at age 7 last 05/2016) Asthma: No Cancer: No Cardiac Disorders: No CVA: No COPD: No CHF: No Dementia: No Diabetes: No GI Disorders: Yes (GASTRIC BYPASS) Disorders: No HTN: Yes (ON MEDS.) Hypercholesterolemia: No Kidney Stones: No Liver Disease: No Seizures: No Thyroid Disease: No - Surgical History Abdominal Surgery: Yes (gastric by pass age 29) Appendectomy: No Cardiac Surgery: No Cholecystectomy: No Lung Surgery: No Neurologic Surgery: No Orthopedic Surgery: Yes (right knee 2004) - Reproductive History PID: No - Suicide/Smoking/Psychosocial Hx Smoking History: Unknown if ever smoked Have you smoked in the past 12 months: Yes Number of Cigarettes Smoked Daily: 6 Cigars Per Day: 0 'Breaking Loose' booklet given: 04/16/18 Hx Alcohol Use: Yes (reports drinking since 10 yo,beer,hard liquors-heavy drinker since 8 yo) Drug/Substance Use Hx: Yes Substance Use Type: Alcohol, Marijuana Hx Substance Use Treatment: Yes (completed this program in 2017) Review of Systems - Review of Systems Constitutional: Yes: Other (Fatigue). No: Chills, Fever HEENTM: No: Symptoms Reported Respiratory: No: Symptoms reported Cardiac (ROS): No: Symptoms Reported ABD/GI: No: Symptoms Reported : No: Symptoms Reported Musculoskeletal: No: Symptoms Reported Integumentary: No: Symptoms Reported Neurological: Yes: Headache. No: Numbness, Paresthesia, Weakness, Unsteady Gait , Dizziness Endocrine: Yes: Intolerance to Cold Hematologic/Lymphatic: Yes: Anemia *Physical Exam - Vital Signs Last Vital Signs Temp Pulse Resp BP Pulse Ox 98.1 F 75 16 116/78 100 04/20/18 17:09 04/20/18 17:09 04/20/18 17:09 04/20/18 17:09 04/20/18 17:09 - Physical Exam General Appearance: Yes: Nourished, Appropriately Dressed. No: Apparent Distress HEENT: positive: EOMI, FLOWER, Pale Conjunctivae. negative: Scleral Icterus (R), Scleral Icterus (L) Respiratory/Chest: positive: Lungs Clear, Normal Breath Sounds. negative: Respiratory Distress Cardiovascular: positive: Regular Rhythm, Regular Rate Medical Decision Making - Medical Decision Making A/P: 42 y/o female sent over from [facility] for anemia with low blood counts. Plan is as follows: 1. Labs 2. EKG *DC/Admit/Observation/Transfer Diagnosis at time of Disposition: Anemia - Referrals - Patient Instructions - Post Discharge Activity
[2018-04-20 19:02] LABS: BASO % 0.4 % (0-2.0); EOS % 1.2 % (0-4.5); HEMATOCRIT 25.5 % (32.4-45.2); HEMOGLOBIN 7.7 GM/dL (10.7-15.3); LYMPH % 25.5 % (8-40); MCH 22.9 pg (25.7-33.7); MCHC 30.3 g/dl (32.0-36.0); MEAN CELL VOLUME 75.5 fl (80-96); MEAN PLT VOLUME 8.2 fl (7.5-11.1); MONO % 12.9 % (3.8-10.2); PLATELET COUNT 267 K/MM3 (134-434); RBC 3.38 M/mm3 (3.60-5.2); RDW 25.9 % (11.6-15.6); WHITE BLOOD COUNT 5.8 K/mm3 (4.0-10.0)
[2018-04-20 19:19] LABS: ALBUMIN 3.6 g/dl (3.4-5.0); ALK PHOS 90 U/L (45-117); ANION GAP 2 MMOL/L (8-16); BILIRUBIN,TOTAL 0.2 mg/dL (0.2-1); BLOOD UREA NITROGEN 10 mg/dL (7-18); CHLORIDE 104 mmol/L (98-107); CO2 28 mmol/L (21-32); CREATININE 0.4 mg/dL (0.55-1.3); GLUCOSE,RANDOM 75 mg/dL (74-106); SGOT/AST 21 U/L (15-37); SGPT/ALT 27 U/L (13-61); SODIUM 134 mmol/L (136-145); TOT PROT 7.4 g/dl (6.4-8.2)
[2018-04-20 19:50] LABS: HCG,QUALITATIVE URINE Negative
[2018-04-20 19:56] LABS: URINE APPEARANCE CLEAR; URINE BILIRUBIN NEGATIVE (<2.0 mg/dL); URINE COLOR STRAW; URINE GLUCOSE (UA) NEGATIVE (NEGATIVE); URINE KETONE NEGATIVE (NEGATIVE); URINE LEUK ESTERASE 3+ (NEGATIVE); URINE NITRITE NEGATIVE (NEGATIVE); URINE PROTEIN NEGATIVE (NEGATIVE); URINE UROBILINOGEN NEGATIVE mg/dL (0.2-1.0)
[2018-04-20 20:09] LABS: EPI CELLS RARE /HPF (FEW)
[2018-04-20] MEDS ORDERED: SODIUM CHLORIDE 1,000 ML IV STA (20:09)
--- NOTE | 2018-04-20 20:19 | PDOC ---
*Physical Exam - Vital Signs Last Vital Signs Temp Pulse Resp BP Pulse Ox 98.1 F 75 16 116/78 100 04/20/18 17:09 04/20/18 17:09 04/20/18 17:09 04/20/18 17:09 04/20/18 17:09 - Physical Exam Comments: 04/20/18 20:12 Last blood transfusion: 09/[address] [facility] Surg hx: 2003/Gastric bypass, Left ankle/left 3rd digit metal surgery, c section Allergies: NKDA 42-year-old female with a history of anemia presents to the emergency department complaining of being tired while at alcohol detox center[facility] in [place]. Patient states she was sent to the emergency department to be evaluated due to her anemia. Patient states she's been taking her iron intermittently. Patient had a total of 3 blood transfusions. Last blood transfusion was September 2017. Patient states for the past 3 blood transfusions, she felt worse. Patient states she never felt as good as she does today during her previous blood transfusions. Patient's only complaint is being tired and 4/ 10 intermittent nonradiating dull frontal headache without dizziness, lightheadedness, nausea/vomiting, fever/chills, facial pains, neck pain/ stiffness, back pains, chest pain, shortness of breath, palpitations, abdominal pains, flank pains, urinary symptoms, extremity numbness or tingling sensation. <Alvin Sadler - Last Filed: 04/20/18 22:12> - Vital Signs Last Vital Signs Temp Pulse Resp BP Pulse Ox 98.1 F 75 16 116/78 100 04/20/18 17:09 04/20/18 17:09 04/20/18 17:09 04/20/18 17:09 04/20/18 17:09 <Angel Coronado - Last Filed: 04/21/18 02:33> Heart Score/ECG Review - ECG Impressions Comment:: 04/20/18 22:30 Twelve-lead EKG was performed and reviewed by me. There is normal sinus rhythm with a normal rate. rate o f72 The axis is normal. The intervals are normal. There is normal R wave progression There are no ST or T wave abnormalities. <Angel Coronado - Last Filed: 04/21/18 02:33> ED Treatment Course - LABORATORY CBC & Chemistry Diagram: 04/20/18 21:34 04/20/18 20:37 - ADDITIONAL ORDERS Additional order review: Laboratory Results 04/20/18 04/20/18 04/20/18 17:58 17:58 17:58 Sodium 134 L Potassium 4.0 Chloride 104 Carbon Dioxide 28 Anion Gap 2 L BUN 10 Creatinine 0.4 L Creat Clearance w eGFR > 60 Random Glucose 75 Calcium 9.0 Total Bilirubin 0.2 AST 21 ALT 27 Alkaline Phosphatase 90 Total Protein 7.4 Albumin 3.6 Urine Color Straw Urine Appearance Clear Urine pH 6.0 Ur Specific [place] 1.004 L Urine Protein Negative Urine Glucose (UA) Negative Urine Ketones Negative Urine Blood Negative Urine Nitrite Negative Urine Bilirubin Negative Urine Urobilinogen Negative Ur Leukocyte Esterase 3+ H Urine WBC (Auto) 11 Urine RBC (Auto) 1 Ur Epithelial Cells Rare Urine HCG, Qual Negative Blood Type O POSITIVE Antibody Screen Negative 04/20/18 17:58 RBC 3.38 L MCV 75.5 L MCHC 30.3 L RDW 25.9 H MPV 8.2 Neutrophils % 60.0 Lymphocytes % 25.5 Monocytes % 12.9 H Eosinophils % 1.2 Basophils % 0.4 <Alvin Sadler - Last Filed: 04/20/18 22:12> - LABORATORY CBC & Chemistry Diagram: 04/20/18 21:34 04/20/18 20:37 - ADDITIONAL ORDERS Additional order review: Laboratory Results 04/20/18 04/20/18 04/20/18 17:58 17:58 17:58 Sodium 134 L Potassium 4.0 Chloride 104 Carbon Dioxide 28 Anion Gap 2 L BUN 10 Creatinine 0.4 L Creat Clearance w eGFR > 60 Random Glucose 75 Calcium 9.0 Total Bilirubin 0.2 AST 21 ALT 27 Alkaline Phosphatase 90 Total Protein 7.4 Albumin 3.6 Urine Color Straw Urine Appearance Clear Urine pH 6.0 Ur Specific [place] 1.004 L Urine Protein Negative Urine Glucose (UA) Negative Urine Ketones Negative Urine Blood Negative Urine Nitrite Negative Urine Bilirubin Negative Urine Urobilinogen Negative Ur Leukocyte Esterase 3+ H Urine WBC (Auto) 11 Urine RBC (Auto) 1 Ur Epithelial Cells Rare Urine HCG, Qual Negative Blood Type O POSITIVE Antibody Screen Negative 04/20/18 17:58 RBC 3.38 L MCV 75.5 L MCHC 30.3 L RDW 25.9 H MPV 8.2 Neutrophils % 60.0 Lymphocytes % 25.5 Monocytes % 12.9 H Eosinophils % 1.2 Basophils % 0.4 <Angel Coronado - Last Filed: 04/21/18 02:33> Progress Note - Progress Note Progress Note: CONSTITUTIONAL: +malaise Absent: fever, chills, diaphoresis, generalized weakness, loss of appetite HEENT: Absent: rhinorrhea, nasal congestion, throat pain, throat swelling, difficulty swallowing, mouth swelling, ear pain, eye pain, visual Changes CARDIOVASCULAR: Absent: chest pain, loss of consciousness, palpitations, irregular heart rate, peripheral edema RESPIRATORY: Absent: cough, shortness of breath, dyspnea with exertion, orthopnea, wheezing, stridor, hemoptysis GASTROINTESTINAL: Absent: abdominal pain, abdominal distension, nausea, vomiting, diarrhea, constipation, melena, hematochezia GENITOURINARY: Absent: dysuria, frequency, urgency, hesitancy, hematuria, flank pain, genital pain MUSCULOSKELETAL: Absent: myalgia, arthralgia, joint swelling SKIN: Absent: rash, itching, pallor HEMATOLOGIC/IMMUNOLOGIC: Absent: easy bleeding, easy bruising, lymphadenopathy, frequent infections ENDOCRINE: Absent: unexplained weight gain, unexplained weight loss, heat intolerance, cold intolerance NEUROLOGIC: +subsiding omer Absent: focal weakness or paresthesias, dizziness, unsteady gait, seizure, mental status changes, bladder or bowel incontinence PSYCHIATRIC: Absent: anxiety, depression, suicidal or homicidal ideation, hallucinations. GENERAL: Well developed, well nourished. Awake and alert. No acute distress. HEENT: Normocephalic, atraumatic. PERRLA, EOMI. No conjunctival pallor. Sclera are non- icteric. Moist mucous membranes. Oropharynx is clear. NECK: Supple. Full ROM. No JVD. Carotid pulses 2+ and symmetric, without bruits. No thyromegaly. No lymphadenopathy. CARDIOVASCULAR: Regular rate and rhythm. No murmurs, rubs, or gallops. Distal pulses are 2+ and symmetric. PULMONARY: No evidence of respiratory distress. Lungs clear to auscultation bilaterally. No wheezing, rales or rhonchi. ABDOMINAL: Soft. Non-tender. Non-distended. No rebound or guarding. No organomegaly. Normoactive bowel sounds. MUSCULOSKELETAL Normal range of motion at all joints. No bony deformities or tenderness. No CVA tenderness. EXTREMITIES: No cyanosis. No clubbing. No edema. No calf tenderness. SKIN: Warm and dry. Normal capillary refill. No rashes. No jaundice. NEUROLOGICAL: Alert, awake, appropriate. Cranial nerves 2-12 intact. No deficits to light touch and temperature in face, upper extremities and lower extremities. No motor deficits in the in face, upper extremities and lower extremities. Normoreflexic in the upper and lower extremities. Normal speech. Toes are down- going bilaterally. Gait is normal without ataxia. PSYCHIATRIC: Cooperative. Good eye contact. Appropriate mood and affect. 2003hrs: patient states she feels fine. Patient is adamant about receiving a blood transfusion. Patient states her headache is subsiding and wishes to return back to [facility] Patient's hemoglobin was 7.1 at 0450 hrs. this morning and is now at 7.7 Patient's had numerous blood work/hemoglobin over the past 2 years and trends in the low 7's <Alvin Sadler - Last Filed: 04/20/18 22:12> Medical Decision Making - Medical Decision Making 04/20/18 20:22 42-year-old female presents to the ER with a history of anemia. Patient was sent over from alcohol detox[facility]. Patient states her headache is subsiding and she feels a bit tired but otherwise fine. Patient states she's had 3 previous blood transfusions when she felt worse. Patient's hemoglobin at 0450 hrs. this morning was 7.1. Patient's hemoglobin at 1857 hrs. this evening was 7.7 Will get 1 more hemoglobin then sent back to [facility] if patient continues to be stable Pt is not hemorrhaging <Alvin Sadler - Last Filed: 04/20/18 22:12> - Medical Decision Making 04/20/18 20:34 pt sent from [facility] for eval of anemia. pt has known anemia in the past requiring transfusion pt notes feeling lightheaded and headache. denies any palps, cp, sob, cai, bpr, melena, heavy menses. notes she has been anemic in the past, possibly due to s/ p bariatric surgery. she is walking around the ED without any signs of orthostasis, lightheadedness, palpitations, sob, cai. do not feel that she his having any sypmtoms attributable to her anemia. I discussed with the pt regarding possibility of transfusion and pt agrees that it is not ecessary. will obtain anohter hbg per [facility] equest discussed wit hpatient she should fu with PMD as outpatient for definitive diagnosis of her anemia. she agrees. The patient was seen and evaluated in conjunction with JOANA Sadler under my direct supervision, ancillary studies were reviewed. I independently interviewed and evaluated the patient and I agree with the plan as outlined by JOANA Sadler. 04/21/18 01:18 repeat hbg at 7.0. suspect her changes in her HBG (7.9->7.1->7.2->7.7->7.0) may be due to lab variance as she is asypmtomtaic, hemodynamically stable with normal vitals signs, i feel she is stable for transfer back to [facility] to continue her rehab. she does haave anemia that needs to be worked up as an outpatient (patient agrees that she will follow up with PMD when she finishes rehab) i discussed with jessica FIELD ORGANIZER - she expressed concern due to her anemia she would like us to observe her further even though she had 3 hemoglobins in the past 24 hrs and remains asypmtomatic. As her hbg has been stable and she is asymptmatic , I do not feel that she should be transfused especially as she does not want it. i had an extensive discussion with jessica regarding my clinical reasoning but she still had some reservations. I suggested that she could discuss with her doctor corrosion control technician at [facility] if she has concerns and she can have them call me if there are further concerns. <Angel Coronado - Last Filed: 04/21/18 02:33> *DC/Admit/Observation/Transfer - Discharge Dispostion Decision to Admit order: No <Alvin Sadler - Last Filed: 04/20/18 22:12> <Angel Coronado - Last Filed: 04/21/18 02:33> Diagnosis at time of Disposition: Anemia Qualifiers: Anemia type: unspecified type Qualified Code(s): D64.9 - Anemia, unspecified - Discharge Dispostion Disposition: HOME Condition at time of disposition: Stable - Referrals Referrals: Tan Stevens MD [Staff Physician] - - Patient Instructions Printed Discharge Instructions: Anemia Additional Instructions: Continue taken iron as prescribed Follow-up with your oncologist as informed Return back to the ER for severe/persistent or worsening symptoms
[2018-04-20 21:32] LABS: ALBUMIN 3.5 g/dl (3.4-5.0); ALK PHOS 80 U/L (45-117); ANION GAP 2 MMOL/L (8-16); BILIRUBIN,TOTAL 0.2 mg/dL (0.2-1); BLOOD UREA NITROGEN 9 mg/dL (7-18); CALCIUM 8.9 mg/dL (8.5-10.1); CHLORIDE 106 mmol/L (98-107); CO2 29 mmol/L (21-32); CREATININE 0.4 mg/dL (0.55-1.3); GLUCOSE,RANDOM 86 mg/dL (74-106); POTASSIUM 4.1 mmol/L (3.5-5.1); SGOT/AST 16 U/L (15-37); SGPT/ALT 26 U/L (13-61); SODIUM 137 mmol/L (136-145); TOT PROT 7.2 g/dl (6.4-8.2)
[2018-04-20 21:52] LABS: BASO % 0.6 % (0-2.0); EOS % 1.4 % (0-4.5); HEMATOCRIT 23.4 % (32.4-45.2); LYMPH % 29.5 % (8-40); MCH 22.7 pg (25.7-33.7); MCHC 30.1 g/dl (32.0-36.0); MEAN CELL VOLUME 75.4 fl (80-96); MEAN PLT VOLUME 7.3 fl (7.5-11.1); MONO % 13.3 % (3.8-10.2); NEUT % 55.2 % (42.8-82.8); PLATELET COUNT 243 K/MM3 (134-434); RBC 3.11 M/mm3 (3.60-5.2); WHITE BLOOD COUNT 5.5 K/mm3 (4.0-10.0)
[2018-04-21 01:20] VITALS: BP 110/68; PULSE 89; TEMP 98.5
--- NOTE | 2018-04-22 10:58 | EKG ---
Test Reason : Blood Pressure : / mmHG Vent. Rate : 072 BPM Atrial Rate : 072 BPM P-R Int : 154 ms QRS Dur : 094 ms QT Int : 416 ms P-R-T Axes : 068 054 044 degrees QTc Int : 455 ms NORMAL SINUS RHYTHM POSSIBLE LEFT ATRIAL ENLARGEMENT WHEN COMPARED WITH ECG OF 16-APR-2018 21:41, NO SIGNIFICANT CHANGE WAS FOUND Confirmed by JHON SANDERS MD ([id number]) on 04/22/2018 10:58:25 AM Referred By: Confirmed By:JHON SANDERS MD
== END 2018-04-21 01:18 | disposition home or self-care (01) ==
LOC: JER 16:57
PROC: 3E0337Z Introduction of Electrolytic and Water Balance Substance into Peripheral Vein, Percutaneous Approach (ICD-10-PCS; principal; 2018-04-20)
DX: D64.9 Anemia, unspecified (principal); F10.20 Alcohol dependence, uncomplicated
CPT/HCPCS: 36415; 80053; 81003; 81015; 84703; 85025; 86850; 86900; 86901; 93005; 93010; 96360; 99281-25; J7030